=== PATIENT | male | born 1990 | race Caucasian/White ===

== ENCOUNTER 2020-08-18 14:31 | Emergency (ER) | payer SELFPAY ==
[2020-08-18] VITALS (11 sets, daily range): BP systolic 156–170; BP diastolic 70–100; PULSE 87–106; RESP 13–21; TEMP 36.8; O2SAT 99–100; BMI 50.1
--- NOTE | 2020-08-18 16:12 | DI.RAD.S_ITS ---
PROCEDURE: XR CHEST 1V INDICATIONS: sob TECHNIQUE: One view of the chest was acquired. COMPARISON: None. FINDINGS: Surgical changes and devices: None. Lungs and pleura: Lungs are clear. No pleural effusions or pneumothorax. Mediastinum: Mediastinal contours appear normal. Heart size is normal. Bones and chest wall: No suspicious bony lesions. Overlying soft tissues appear unremarkable. IMPRESSION: No acute disease. Dictated by: Ian Escobar M.D. on 08/18/2020 at 16:38 Approved by: Ian Escobar M.D. on 08/18/2020 at 16:39
[2020-08-18 19:21] LABS: Add Manual Diff / Slide Review NO; Basophils Absolute Auto 0 /uL (0-100); Basophils Percent Auto 0.5 % (0-2); Eosinophils Absolute Auto 100 /uL (0-450); Eosinophils Percent Auto 0.6 % (2-4); Hematocrit 42.3 % (41-53); Hemoglobin 14.3 g/dL (13.5-17.5); Lymphocytes Absolute Auto 2800 /uL (1100-4500); Lymphocytes Percent Auto 28.3 % (25-40); Mean Corpuscular HGB Conc 33.8 % (30-36); Mean Corpuscular Hemoglobin 28.4 PG (26-34); Mean Corpuscular Volume 83.9 fL (80-100); Monocytes Absolute Auto 600 /uL (0-900); Monocytes Percent Auto 5.9 % (3-14); Neutrophils Absolute Auto 6300 /uL (1500-7000); Neutrophils Percent Auto 64.7 % (50-75); Platelet Count 286 X10^3/uL (150-400); Red Blood Cell Count 5.04 X10^6/uL (4.5-5.9); Red Cell Distribution Width 13.7 % (11.6-14.8); White Blood Cell Count 9.8 X10^3/uL (4.5-11.0)
[2020-08-18 19:34] LABS: Blood Urea Nitrogen 17 mg/dL (9-20); Calcium 9.3 mg/dL (8.4-10.2); Carbon Dioxide 30 mmol/L (22-32); Chloride 103 mmol/L (98-107); Creatine Kinase 166 U/L (55-170); Estimated Glomerular Filt Rate > 60.0 mL/min (>60); Glucose 104 mg/dL (70-100); HEMOLYSIS < 15 (0-50); Lactate (Lactic Acid) 0.8 mmol/L (0.7-2.1); Magnesium 2.1 mg/dL (1.6-2.3); Sodium 139 mmol/L (137-145)
[2020-08-18 19:46] LABS: NT-proBNP (BNP-Adult 18+) 46 pg/mL (<125); Troponin I < 0.012 ng/mL (0.01-0.034)
[2020-08-18 19:48] LABS: CKMB % Relative Index 0.6 % (1.5-5.0); Creatine Kinase MB 0.97 ng/mL (<2.37)
[2020-08-18 19:57] LABS: D Dimer < 200 ng/mL (<230); Procalcitonin < 0.05 ng/mL (<0.5)
--- NOTE | 2020-08-18 20:24 | ED.SOB ---
HPI - SOB/Dyspnea General Chief Complaint: Shortness of Breath/Dyspnea Stated Complaint: breathing issues,thigh pain Time Seen by Provider: 08/18/20 16:11 Source: patient Mode of arrival: Ambulatory Limitations: no limitations History of Present Illness HPI Narrative: 29-year-old male nonsmoker with noncontributory medical history presents with a chief complaint of a concerning episode that occurred prior to his arrival in emergency department. He was in his normal state of health and attending a meeting at work earlier today when he was sitting at a table and felt a sudden uneasy feeling in his chest which caused him to feel dizzy and lightheaded. His symptoms lasted 30-45 minutes. He denies any provocation, palliation or radiation. He denies any history of the same. He denies any recent dietary medication change. He states he is quite active frequently and denies any exertional type symptoms at any other point. He denies recent travel, history of blood clot or injury. He denies exposure to persons known to be positive for COVID. His symptoms had largely resolved prior to arriving at the emergency department. During his episode he felt short of breath but that is no longer the case. He has had no cough. Also patient complains of some pain on his R thigh that had been presents a few weeks ago, but is no longer there. He denies redness, warmth, or swelling. MD Complaint: shortness of breath Onset (ago): hour(s) Severity: moderate Consistency/Duration: now resolved Relieving factors: nothing Exacerbating factors: nothing Treatment prior to arrival: none Related Data Allergies Allergy/AdvReac Type Severity Reaction Status Date / Time No Known Drug Allergies Allergy Verified 08/18/20 15:35 Review of Systems Constitutional Constitutional: Denies chills, Denies fatigue, Denies fever(s), Denies frequent falls, Denies lethargy and Denies weakness Eyes Eyes: Denies change in vision, Denies eye discharge, Denies irritation and Denies loss of vision ENT Ears, Nose, Mouth, and Throat: Denies change in voice, Denies dizziness, Denies neck pain, Denies sore throat and Denies throat swelling Cardiovascular Cardiovascular: Reports chest pain, Denies irregular heart rhythm, Denies lightheadedness, Denies palpitations, Reports dyspnea, Denies dyspnea on exertion and Denies orthopnea Respiratory Respiratory: Denies cough, Reports dyspnea, Denies dyspnea on exertion and Denies wheezing Gastrointestinal Gastrointestinal: Denies abdominal pain, Denies change in bowel habits, Denies diarrhea, Denies nausea and Denies vomiting Musculoskeletal Musculoskeletal: Denies neck pain and Denies numbness Integumentary/Breasts Skin/Breast: Denies pruritus, Denies erythema, Denies rash and Denies wounds Neurologic Neurologic: Denies behavioral changes, Denies confusion, Denies dizziness, Denies frequent falls, Denies loss of vision, Denies numbness and Denies weakness Psychiatric Psychiatric: Denies anxiety, Denies behavioral changes, Denies confusion, Denies depression, Denies homicidal ideation and Denies suicidal ideation Endocrine Endocrine: Denies fatigue, Denies flushing and Denies palpitations Hematologic/Lymphatic Hematologic/Lymphatic: Denies easy bruising Allergic/Immunologic Allergic/Immunologic: Denies urticaria, Denies throat swelling and Denies wheezing Patient History Social History Smoking Status: Never smoker Smoking Status: Never smoker alcohol intake frequency: holidays/special occasions only Substance Use Type: does not use Exam Narrative Exam Narrative: GENERAL: [29] year old patient appears stated age. Well-nourished, well-developed patient, in mild distress. BMI 50 HEAD: Atraumatic. Normocephalic. EYES: Pupils equal round and reactive. Extraocular motions intact. No scleral icterus. No injection or drainage. ENT: Nose without bleeding, purulent drainage. Throat without erythema, tonsillar hypertrophy or exudate. Airway patent. NECK: Trachea midline. Non tender CARDIOVASCULAR: Regular rate and rhythm without murmurs, gallops, or rubs. RESPIRATORY: Clear to auscultation. Breath sounds equal bilaterally. No wheezes, rales, or rhonchi. GASTROINTESTINAL: Abdomen soft, non-tender, nondistended. EXTREMITIES: No edema or joint tenderness. BACK: Nontender without deformity or crepitance. No flank tenderness. NEURO: AOx3. SKIN: No rash or erythema of visible areas Initial Vital Signs Initial Vital Signs: Vital Signs Temperature 98.2 F 08/18/20 15:35 Pulse Rate 105 H 08/18/20 15:35 Respiratory Rate 18 08/18/20 15:35 Blood Pressure 156/100 H 08/18/20 15:35 Pulse Oximetry 100 08/18/20 15:35 Course Orders Ordered: ED Orders 08/18/20 15:41 EKG-12 Lead Stat 08/18/20 16:11 Consult to Respiratory Therapy Evaluate & Treat 08/18/20 16:12 XR chest 1V Stat 08/18/20 19:09 Basic Metabolic Panel Stat Complete Blood Count AUTO DIFF Stat D Dimer Stat Lactate (Lactic Acid) Stat Magnesium Stat NT-proBNP (BNP-Adult 18+) Stat Procalcitonin Stat Troponin & CK Cardiac Panel Stat Vital Signs Vital signs: Vital Signs - 8 hr 08/18/20 20:30 08/18/20 20:31 Pulse Rate 87 87 Respiratory Rate 17 19 Blood Pressure 168/74 H Pulse Oximetry 100 100 MDM - SOB/Dyspnea Lab Data Result diagrams: 08/18/20 19:09 08/18/20 19:09 Labs: Lab Results 08/18/20 08/18/20 08/18/20 Range/Units 19:09 19:09 19:09 WBC 9.8 (4.5-11.0) X10^3/uL RBC 5.04 (4.5-5.9) X10^6/uL Hgb 14.3 (13.5-17.5) g/dL Hct 42.3 (41-53) % MCV 83.9 (80-100) fL MCH 28.4 (26-34) PG MCHC 33.8 (30-36) % RDW 13.7 (11.6-14.8) % Plt Count 286 (150-400) X10^3/uL Neut % (Auto) 64.7 (50-75) % Lymph % (Auto) 28.3 (25-40) % [place] % (Auto) 5.9 (3-14) % Eos % (Auto) 0.6 L (2-4) % Baso % (Auto) 0.5 (0-2) % Neut # (Auto) 6300 (6925-4685) /uL Lymph # (Auto) 2800 (8280-6306) /uL [place] # (Auto) 600 (0-900) /uL Eos # (Auto) 100 (0-450) /uL Baso # (Auto) 0 (0-100) /uL D-Dimer < 200 (<230) ng/mL Sodium 139 (137-145) mmol/L Potassium 4.0 (3.4-5.1) mmol/L Chloride 103 (98-107) mmol/L Carbon Dioxide 30 (22-32) mmol/L BUN 17 (9-20) mg/dL Creatinine 0.68 (0.66-1.25) mg/dL Estimated GFR > 60.0 (>60) mL/min BUN/Creatinine Ratio 25.0 H (6-22) Glucose 104 H (70-100) mg/dL Lactate (0.7-2.1) mmol/L Calcium 9.3 (8.4-10.2) mg/dL Magnesium 2.1 (1.6-2.3) mg/dL Total Creatine Kinase 166 (55-170) U/L CK-MB (CK-2) 0.97 (<2.37) ng/mL CK-MB (CK-2) Rel Index 0.6 L (1.5-5.0) % Troponin I < 0.012 (0.01-0.034) ng/mL NT-Pro-B Natriuret Pep 46 (<125) pg/mL Procalcitonin (<0.5) ng/mL 08/18/20 08/18/20 Range/Units 19:09 19:09 WBC (4.5-11.0) X10^3/uL RBC (4.5-5.9) X10^6/uL Hgb (13.5-17.5) g/dL Hct (41-53) % MCV (80-100) fL MCH (26-34) PG MCHC (30-36) % RDW (11.6-14.8) % Plt Count (150-400) X10^3/uL Neut % (Auto) (50-75) % Lymph % (Auto) (25-40) % [place] % (Auto) (3-14) % Eos % (Auto) (2-4) % Baso % (Auto) (0-2) % Neut # (Auto) (6710-1548) /uL Lymph # (Auto) (8935-3158) /uL [place] # (Auto) (0-900) /uL Eos # (Auto) (0-450) /uL Baso # (Auto) (0-100) /uL D-Dimer (<230) ng/mL Sodium (137-145) mmol/L Potassium (3.4-5.1) mmol/L Chloride (98-107) mmol/L Carbon Dioxide (22-32) mmol/L BUN (9-20) mg/dL Creatinine (0.66-1.25) mg/dL Estimated GFR (>60) mL/min BUN/Creatinine Ratio (6-22) Glucose (70-100) mg/dL Lactate 0.8 (0.7-2.1) mmol/L Calcium (8.4-10.2) mg/dL Magnesium (1.6-2.3) mg/dL Total Creatine Kinase (55-170) U/L CK-MB (CK-2) (<2.37) ng/mL CK-MB (CK-2) Rel Index (1.5-5.0) % Troponin I (0.01-0.034) ng/mL NT-Pro-B Natriuret Pep (<125) pg/mL Procalcitonin < 0.05 (<0.5) ng/mL Imaging Data Chest x-ray: Radiologist's Impression: [address] [id number] ReportSigned Patient: Andrea Brown AMR#: [id number]: 1990Acct:[id number]/Sex: 29 / MDate of Service: 08/18/20Loc: EDAccession Number: [id number] Procedure: XR chest 1V Ordering Provider: Genesis Cortes D.O. PROCEDURE: XR CHEST 1V INDICATIONS: sob TECHNIQUE: One view of the chest was acquired. COMPARISON: None. FINDINGS: Surgical changes and devices: None. Lungs and pleura: Lungs are clear. No pleural effusions or pneumothorax. Mediastinum: Mediastinal contours appear normal. Heart size is normal. Bones and chest wall: No suspicious bony lesions. Overlying soft tissues appear unremarkable. IMPRESSION: No acute disease. Dictated by: Ian Escobar M.D. on 08/18/2020 at 16:38 Approved by: Ian Escobar M.D. on 08/18/2020 at 16:39 ECG Data Attestation: I personally reviewed and interpreted this ECG as follows: Interpretation: EKG is normal sinus rhythm rate [ 84] and free of any signs of ischemia or ectopy. No ST segmental elevation or depression. No T wave inversions MDM Narrative Medical decision making narrative: Multiple etiologies for patient's symptoms considered including: Multiple causes of chest pain considered including NV, PE, pneumothorax, pneumonia, aortic dissection, and pleurisy. Patient reports no radiation, no diaphoresis, no provocation with exertion, and no vomiting. Also consider PE but thought unlikely given negative D-dimer. Consideration of a brief, resolved tachyarrhythmia Patient's symptoms improved over duration of stay with above-stated therapies. Findings and discharge diagnosis discussed with patient/family followed by verbalization of understanding Return precautions discussed with patient/family whom verbalize understanding. Discharge Plan Departure Patient Disposition: Home Clinical Impression: Near syncope Instructions: DI for Syncope in Adults (Fainting) Activity Restrictions/Additional Instructions: *You have been diagnosed with [near syncopal episode, your exam, labs and EKG are very reassuring today, but you will need to follow up with a primary doc to continue the workup. ] *What to do: *Take medications as directed *Follow up with your primary care provider in 2-3 days, call for an appointment. Let them know you were seen in the Emergency Department and that we ask that you be seen in follow up *Return to ER if you should have any new, worsening or concerning symptoms Referrals: [facility] [Outside]
== END 2020-08-18 21:12 | disposition home or self-care (01) ==
PROVIDERS: Emergency Medicine; Emergency Provider Emergency Medicine
DX: R55 Syncope and collapse (principal); R06.02 Shortness of breath
CPT/HCPCS: 36415; 71045; 80048; 82550; 82553; 83605; 83735; 83880; 84145; 84484; 85025; 85379; 93005; 99283

== ENCOUNTER 2021-04-02 11:52 | Emergency (ER) | payer SELFPAY ==
--- NOTE | 2021-04-02 12:07 | DI.RAD.S_ITS ---
PROCEDURE: XR CHEST 1V INDICATIONS: chest pain TECHNIQUE: One view of the chest was acquired. COMPARISON: [facility], CR, XR CHEST 1V, 08/18/2020, 16:26. FINDINGS: Surgical changes and devices: None. Lungs and pleura: Low lung volumes. Scattered subsegmental atelectasis and/or scarring. No focal consolidation. No pleural effusion or pneumothorax. Mediastinum: Mediastinal contours appear normal. Heart size is normal. Bones and chest wall: No suspicious bony lesions. Overlying soft tissues appear unremarkable. IMPRESSION: Low lung volumes and scattered atelectasis. Dictated by: Ian Escobar M.D. on 04/02/2021 at 12:37 Approved by: Ian Escobar M.D. on 04/02/2021 at 12:38
[2021-04-02 12:10] VITALS: BP 185/101; PULSE 103; RESP 20; TEMP 36.7; O2SAT 98
[2021-04-02 12:52] LABS: Add Manual Diff / Slide Review NO; Basophils Absolute Auto 0 /uL (0-100); Basophils Percent Auto 0.5 % (0-2); Eosinophils Absolute Auto 100 /uL (0-450); Eosinophils Percent Auto 0.9 % (2-4); Hematocrit 42.9 % (41-53); Hemoglobin 14.3 g/dL (13.5-17.5); Lymphocytes Absolute Auto 2000 /uL (1100-4500); Lymphocytes Percent Auto 25.6 % (25-40); Mean Corpuscular HGB Conc 33.3 % (30-36); Mean Corpuscular Hemoglobin 27.8 PG (26-34); Mean Corpuscular Volume 83.5 fL (80-100); Monocytes Absolute Auto 600 /uL (0-900); Monocytes Percent Auto 7.8 % (3-14); Neutrophils Absolute Auto 5200 /uL (1500-7000); Neutrophils Percent Auto 65.2 % (50-75); Platelet Count 291 X10^3/uL (150-400); Red Blood Cell Count 5.14 X10^6/uL (4.5-5.9); Red Cell Distribution Width 14.1 % (11.6-14.8); White Blood Cell Count 7.9 X10^3/uL (4.5-11.0)
[2021-04-02 13:08] LABS: Alanine Aminotransferase 54 IU/L (<50); Albumin 4.4 g/dL (3.5-5.0); Albumin Globulin Ratio 1.2 (1.0-2.8); Alkaline Phosphatase 117 U/L (38-126); Aspartate Aminotransferase 31 IU/L (17-59); BUN Creatinine Ratio 23.9 (6-22); Bilirubin Total 0.5 mg/dL (0.2-1.3); Blood Urea Nitrogen 16 mg/dL (9-20); Carbon Dioxide 28 mmol/L (22-32); Chloride 103 mmol/L (98-107); Creatine Kinase 113 U/L (55-170); Estimated Glomerular Filt Rate > 60.0 mL/min (>60); Globulin 3.6 g/dL (1.7-4.1); Glucose 100 mg/dL (70-100); HEMOLYSIS < 15 (0-50); Lipase 38 U/L (23-300); Sodium 138 mmol/L (137-145)
[2021-04-02 13:18] LABS: Troponin I < 0.012 ng/mL (0.01-0.034)
[2021-04-02 13:23] LABS: CKMB % Relative Index 0.7 % (1.5-5.0); Creatine Kinase MB 0.78 ng/mL (<2.37)
[2021-04-02 14:11] VITALS: PULSE 90; O2SAT 100
[2021-04-02 14:12] VITALS: BP 172/96; PULSE 95; O2SAT 99
[2021-04-02 14:30] VITALS: BP 171/88; PULSE 92; RESP 19; O2SAT 100
--- NOTE | 2021-04-02 14:38 | ED_ITS ---
HPI - General Adult General Chief complaint: Hypertension Stated complaint: headache, blood pressure high, clamy, sweating Time Seen by Provider: 04/02/21 14:26 Source: patient Mode of arrival: Ambulatory Limitations: no limitations History of Present Illness HPI narrative: 22-year-old male nonsmoker with no medical history presents with a chief complaint of a few days of vague headache, fatigue, and dizziness. He went to the walk-in clinic for evaluation He states that he checked his blood pressure found to be in the 180s at which point he was sent here. He denies any chest pain nor fever chills. He denies abdominal pain. He has no numbness, tingling or weakness. On arrival his blood pressure was in the 180s and has since improved a bit to the 170s and his symptoms have resolved he denies any history of high blood pressure and does not take any medications Related Data Previous Rx's Medication Instructions Recorded amlodipine 5 mg tablet 5 mg PO DAILY #30 tab 04/02/21 Allergies Allergy/AdvReac Type Severity Reaction Status Date / Time No Known Drug Allergies Allergy Verified 04/02/21 14:40 Review of Systems Review of Systems Narrative: GENERAL: See HPI HEENT: Denies sinus pain, ear pain, sore throat, difficulty swallowing, dizziness. RESPIRATORY: Denies dyspnea, cough, wheezing, hemoptysis, sputum. CARDIOVASCULAR: See HPI GASTROINTESTINAL: Denies nausea, vomiting, abdominal pain, diarrhea, constipation, melena. : Denies dysuria, frequency, incontinence, hematuria, urinary retention. MUSCULOSKELETAL: denies weakness, joint pain, or bony pain SKIN: Denies rash, skin lesions, or other NEUROLOGIC: See HPI. PSYCHIATRIC: No concerning psychosocial issues. 12 point review of systems is negative except for those stated above Patient History Social History Smoking Status: Never smoker Smoking Status: Never smoker alcohol intake frequency: holidays/special occasions only Substance Use Type: does not use Exam Narrative Exam Narrative: GENERAL: [30] year old patient appears stated age. Well- developed patient, in mild distress. HEAD: Atraumatic. Normocephalic. EYES: Pupils equal round and reactive. Extraocular motions intact. No scleral icterus. No injection or drainage. ENT: Nose without bleeding, purulent drainage. Throat without erythema, tonsillar hypertrophy or exudate. Airway patent. NECK: Trachea midline. Non tender CARDIOVASCULAR: Regular rate and rhythm without murmurs, gallops, or rubs. RESPIRATORY: Clear to auscultation. Breath sounds equal bilaterally. No wheezes, rales, or rhonchi. GASTROINTESTINAL: Abdomen soft, non-tender, nondistended. EXTREMITIES: No edema or joint tenderness. BACK: Nontender without deformity or crepitance. No flank tenderness. NEURO: AOx3. SKIN: No rash or erythema of visible areas Initial Vital Signs Initial Vital Signs: Vital Signs Temperature 98.0 F 04/02/21 12:10 Pulse Rate 103 H 04/02/21 12:10 Respiratory Rate 20 04/02/21 12:10 Blood Pressure 185/101 H 04/02/21 12:10 Pulse Oximetry 98 04/02/21 12:10 Course Orders Ordered: ED Orders 04/02/21 12:07 XR chest 1V Stat EKG-12 Lead Stat 04/02/21 12:40 Complete Blood Count AUTO DIFF Stat Comprehensive Metabolic Panel Stat Lipase Stat Troponin & CK Cardiac Panel Stat Reevaluation(s) Reevaluation #1: Significant improvement in patient's symptoms correlate with improvement in blood pressure. Vital Signs Vital signs: Vital Signs - 8 hr 04/02/21 12:10 04/02/21 14:11 04/02/21 14:12 Temperature 98.0 F Pulse Rate 103 H 90 95 H Respiratory Rate 20 Blood Pressure 185/101 H 172/96 H Pulse Oximetry 98 100 99 04/02/21 14:30 04/02/21 14:44 Temperature Pulse Rate 92 H 94 H Respiratory Rate 19 14 Blood Pressure 171/88 H 172/86 H Pulse Oximetry 100 100 Medical Decision Making Lab Data Result diagrams: 04/02/21 12:40 04/02/21 12:40 Labs: Lab Results 04/02/21 04/02/21 Range/Units 12:40 12:40 WBC 7.9 (4.5-11.0) X10^3/uL RBC 5.14 (4.5-5.9) X10^6/uL Hgb 14.3 (13.5-17.5) g/dL Hct 42.9 (41-53) % MCV 83.5 (80-100) fL MCH 27.8 (26-34) PG MCHC 33.3 (30-36) % RDW 14.1 (11.6-14.8) % Plt Count 291 (150-400) X10^3/uL Neut % (Auto) 65.2 (50-75) % Lymph % (Auto) 25.6 (25-40) % [place] % (Auto) 7.8 (3-14) % Eos % (Auto) 0.9 L (2-4) % Baso % (Auto) 0.5 (0-2) % Neut # (Auto) 5200 (5568-0131) /uL Lymph # (Auto) 2000 (1743-9000) /uL [place] # (Auto) 600 (0-900) /uL Eos # (Auto) 100 (0-450) /uL Baso # (Auto) 0 (0-100) /uL Sodium 138 (137-145) mmol/L Potassium 4.0 (3.4-5.1) mmol/L Chloride 103 (98-107) mmol/L Carbon Dioxide 28 (22-32) mmol/L BUN 16 (9-20) mg/dL Creatinine 0.67 (0.66-1.25) mg/dL Estimated GFR > 60.0 (>60) mL/min BUN/Creatinine Ratio 23.9 H (6-22) Glucose 100 (70-100) mg/dL Calcium 10.0 (8.4-10.2) mg/dL Total Bilirubin 0.5 (0.2-1.3) mg/dL AST 31 (17-59) IU/L ALT 54 H (<50) IU/L Alkaline Phosphatase 117 (38-126) U/L Total Creatine Kinase 113 (55-170) U/L CK-MB (CK-2) 0.78 (<2.37) ng/mL CK-MB (CK-2) Rel Index 0.7 L (1.5-5.0) % Troponin I < 0.012 (0.01-0.034) ng/mL Total Protein 8.0 (6.3-8.2) g/dL Albumin 4.4 (3.5-5.0) g/dL Globulin 3.6 (1.7-4.1) g/dL Albumin/Globulin Ratio 1.2 (1.0-2.8) Lipase 38 (23-300) U/L MDM Narrative Medical decision making narrative: Patient with what appears to be symptomatic blood pressure on arrival and improvement with improved blood pressure. His history, physical exam and labs are very reassuring. We talked at length about the importance of following closely with his primary care provider to tract the effectiveness of our therapies. He understands this as is evidenced by his ability to verbalize the instructions. Return precautions given and questions answered to her his apparent satisfaction Discharge Plan Departure Patient Disposition: Home Clinical Impression: Hypertension Instructions: DI for High Blood Pressure Activity Restrictions/Additional Instructions: *You have been diagnosed with [ hypertension] *What to do: *Please continue to take your regular medications as directed. [x ] New medication prescriptions sent to your pharmacy: [ [facility]] [ ] New medication written as a paper prescription [ ] No new medications given *Please follow up with your primary care provider in 2-3 days, call for an appointment. Let them know you were seen in the Emergency Department and that we ask that you be seen in follow up. We will electronically transmit a record of today's note if your PCP is in our system *If you do not have a primary care provider please contact the [facility] Resource line at [phone]. They will ask some questions about your medical history and help get you set up with a doctor in the community. *Return to Emergency Department if you should have any new, worsening or concerning symptoms, such as [fever greater than 101 F, shaking chills, wors ening pain, persistent vomiting or other bothersome symptoms] Prescriptions: New amlodipine 5 mg tablet 5 mg PO DAILY Qty: 30 RF: 0
[2021-04-02 14:44] VITALS: BP 172/86; PULSE 94; RESP 14; O2SAT 100
== END 2021-04-02 15:33 | disposition home or self-care (01) ==
PROVIDERS: Emergency Provider Emergency Medicine
DX: I10 Essential (primary) hypertension (principal); R42 Dizziness and giddiness; R07.9 Chest pain, unspecified
CPT/HCPCS: 36415; 71045; 80053; 82550; 82553; 83690; 84484; 85025; 93005; 99284

== ENCOUNTER 2022-05-28 09:57 | Emergency (ER) | payer OTHER, SELFPAY ==
[2022-05-28 10:08] VITALS: BP 142/86; PULSE 90; RESP 15; TEMP 36.2; O2SAT 98; BMI 54.2
--- NOTE | 2022-05-28 10:14 | DI.RAD.S_ITS ---
PROCEDURE: XR KNEE RT 3V INDICATIONS: knee pain and swelling TECHNIQUE: 3 views of the knee were acquired. COMPARISON: None. FINDINGS: Bones: No fractures or dislocations. No suspicious bony lesions. Soft tissues: No joint effusion. No suspicious soft tissue calcifications. IMPRESSION: Normal right knee Dictated by: Carlitos Krishnan M.D. on 05/28/2022 at 11:07 Approved by: Carlitos Krishnan M.D. on 05/28/2022 at 11:08
--- NOTE | 2022-05-28 12:22 | DI.US.S_ITS ---
PROCEDURE: US PERIPH VENOUS LOW EXTREM RT INDICATIONS: Pain and swelling TECHNIQUE: Real-time imaging, as well as color and pulse Doppler interrogation, were performed of the lower extremity deep veins from the inguinal ligament to the popliteal fossa. COMPARISON: None. FINDINGS: The common femoral, femoral and popliteal veins are normally compressible, and free of intraluminal thrombus. Color and pulse Doppler demonstrate normal phasic intraluminal flow. There is normal augmentation response to distal compression maneuver. IMPRESSION: No sonographic evidence of DVT. Dictated by: Santy Das M.D. on 05/28/2022 at 13:41 Approved by: Santy Das M.D. on 05/28/2022 at 13:44
--- NOTE | 2022-05-28 12:24 | ED.LOWEXIN ---
HPI - Extremity Injury (Lower) General Chief Complaint: Extremity Injury, Lower Stated Complaint: rt knee injury getting worse, swelling bruising Time Seen by Provider: 05/28/22 12:14 Source: patient Mode of arrival: Ambulatory History of Present Illness HPI Narrative: Patient here for ongoing right knee pain for the past 1 month. He was at home in the kitchen and hardwood floor, he pivoted and felt a pop in the right lateral knee. Since then he is had off and on popping sensation in the same area. Has had bruising to the right lateral knee as well. Painful with walking and bearing weight. No previous injury to the knee. Patient does admit he is overweight and does not help/contribute to the knee pain. No numbness or tingling to the feet. Patient wearing shorts. Related Data Previous Rx's Medication Instructions Recorded amlodipine 5 mg tablet 5 mg PO DAILY #30 tabs 04/02/21 Allergies Allergy/AdvReac Type Severity Reaction Status Date / Time amoxicillin [From Augmentin] Allergy Verified 05/28/22 10:10 clavulanic acid Allergy Verified 05/28/22 10:10 [From Augmentin] sulfamethoxazole Allergy Verified 05/28/22 10:10 [From Septra] trimethoprim [From Septra] Allergy Verified 05/28/22 10:10 Review of Systems Review of Systems Narrative: GENERAL: Denies chills, fatigue, malaise, fever, sweats. HEENT: Denies sinus pain, ear pain, sore throat RESPIRATORY: Denies dyspnea, cough CARDIOVASCULAR: Denies chest pain, palpitations GASTROINTESTINAL: Denies nausea, vomiting, abdominal pain : Denies dysuria, frequency, hematuria MUSCULOSKELETAL: Positive for muscle or bony pain SKIN: Denies rash, skin lesions NEUROLOGIC: Denies weakness, numbness ROS Unobtainable: All systems reviewed & are unremarkable except as noted in HPI and below Patient History Social History Smoking Status: Never smoker Smoking Status: Never smoker alcohol intake frequency: holidays/special occasions only Substance Use Type: does not use Exam Narrative Exam Narrative: GENERAL: in no distress, not toxic not dyspneic HEAD: Normocephalic. EXTREMITIES: No gross deformities. Examination right lower extremity. Able stand and bear weight but does have antalgic gait no foot drop. There is tenderness to the lateral knee with ecchymosis. There is pain but no laxity of the knee with medial and lateral and rotational stress of the right leg. No pain or laxity of the knee with anterior posterior stress of the right leg. No palpable cords on calf. Calf nontender. NEURO: AOx4. SKIN: Warm and dry PSYCH: Not anxious, is cooperative Initial Vital Signs Initial Vital Signs: Vital Signs Temperature 97.1 F L 05/28/22 10:08 Pulse Rate 90 05/28/22 10:08 Respiratory Rate 15 05/28/22 10:08 Blood Pressure 142/86 H 05/28/22 10:08 Pulse Oximetry 98 05/28/22 10:08 Oxygen Delivery Method 05/28/22 10:08 Course Course Course Narrative: No new issues during course of stay Orders Ordered: ED Orders 05/28/22 10:14 XR knee RT 3V Stat 05/28/22 12:22 periph venous low extrem rt Stat Reevaluation(s) Reevaluation #1: Results reviewed with patient. Agrees with treatment plan on follow up with Orthopedics as well as possible MRI. Pain control at time of discharge. Time: 14:54 Vital Signs Vital signs: Vital Signs - 8 hr 05/28/22 10:08 Temperature 97.1 F L Pulse Rate 90 Respiratory Rate 15 Blood Pressure 142/86 H Pulse Oximetry 98 Oxygen Delivery Method Room Air MDM - Extremity Injury (Lower) Differential Diagnosis Differential diagnosis: Likely acute internal derangement of knee and other (DVT/knee strain/sprain) Imaging Data Extremity x-ray #1: Radiologist's Impression: [address] [id number] ReportSigned Patient: Andrea Brown [facility]#: [id number]: 1990Acct:[id number]/Sex: te of Service: 05/28/22Loc: EDAccession Number: [id number] Procedure: XR knee RT 3V Ordering Provider: Ozzie Cleaning MD PROCEDURE: XR KNEE RT 3V INDICATIONS: knee pain and swelling TECHNIQUE: 3 views of the knee were acquired. COMPARISON: None. FINDINGS: Bones: No fractures or dislocations. No suspicious bony lesions. Soft tissues: No joint effusion. No suspicious soft tissue calcifications. IMPRESSION: Normal right knee Dictated by: Carlitos Krishnan M.D. on 05/28/2022 at 11:07 Approved by: Carlitos Krishnan M.D. on 05/28/2022 at 11:08 US - DVT: Radiologist's Impression: [address] [address] Ultrasound Report Signed Patient: Andrea Brown MR#: [id number] : 1990 Acct:[id number] Age/Sex: 31 / M Date of Service: 05/28/22 Loc: ED Accession Number: [id number] ?? Procedure: US periph venous low extrem rt Ordering Provider: Ozzie Cleaning MD PROCEDURE:? US PERIPH VENOUS LOW EXTREM RT ? INDICATIONS:? Pain and swelling ? TECHNIQUE:? Real-time imaging, as well as color and pulse Doppler interrogation, were performed of the lower extremity deep veins from the inguinal ligament to the popliteal fossa.? ? COMPARISON:? None. ? FINDINGS:? The common femoral, femoral and popliteal veins are normally compressible, and free of intraluminal thrombus.? Color and pulse Doppler demonstrate normal phasic intraluminal flow.? There is normal augmentation response to distal compression maneuver. ? ? IMPRESSION:? No sonographic evidence of DVT. ? ? Dictated by: Santy Das M.D. on 05/28/2022 at 13:41 ? ? Approved by: Santy Das M.D. on 05/28/2022 at 13:44 ? MDM Narrative Medical decision making narrative: Appropriate for discharge home. Exam and imaging are reassuring. Patient does need outpatient MRI and follow up with Orthopedics. Patient agrees with treatment plan. He does have crutches at home already. He states he will get an euuh-aej-jxnydro knee sleeve/support. Return precautions reviewed with patient. He desires discharge home Discharge Plan Departure Patient Disposition: Home Clinical Impression: Knee Injury Instructions: DI for Knee Pain Activity Restrictions/Additional Instructions: Please use your home crutches to reduce weight-bearing and strain on your knee to allow better healing. May use [id number]-[id number] Tylenol or ibuprofen for pain. Use Kyler wrap to the knee for support but preferred is a knee sleeve that you can get [id number]-[id number] at a sports store. Call provided orthopedic office on Tuesday for office re-evaluation of your knee, you may need to schedule outpatient MRI of your knee with the office as well. Return if worse if any questions or concerns Prescriptions: No Action amlodipine 5 mg tablet 5 mg PO DAILY Qty: 30 0RF Referrals: Addis Paz MD [Physician] - Miscellaneous,MD Lorene [Primary Care Provider] - Visit Report Forms: Patient Portal/API
[2022-05-28 15:10] VITALS: PULSE 96; RESP 18; O2SAT 98
--- NOTE | 2022-05-28 15:16 | PC.NURSE ---
Pt assessment done by provider Dr. Cleaning.
[2022-05-28 15:17] VITALS: BP 177/110
== END 2022-05-28 15:20 | disposition home or self-care (01) ==
PROVIDERS: Emergency Provider Emergency Medicine
DX: S89.91XA Unspecified injury of right lower leg, initial encounter (principal); X50.1XXA Overexertion from prolonged static or awkward postures, initial encounter
CPT/HCPCS: 73562; 93971; 99283

== ENCOUNTER 2025-07-03 10:54 | Day surgery (SDC) | payer OTHER, SELFPAY ==
[2025-06-14 12:17] VITALS: BMI 64.6
[2025-07-03 11:33] VITALS: BP 176/104; PULSE 107; RESP 18; TEMP 37.5; O2SAT 97
[2025-07-03] MEDS: LACTATED RINGERS 1,000 ML 42 ML IV (12:08)
--- NOTE | 2025-07-03 12:28 | P.OP.PRE_ITS ---
Pre-operative Note
--- NOTE | 2025-07-03 12:28 | PM.PREOP ---
Pre-operative Note COVID-19 COVID-19 status: Not tested Interval Note History & Physical reviewed/Exam performed by Physician: Yes Changes to H&P: No
--- NOTE | 2025-07-03 13:39 | SUR.OPER ---
Supine on padded OR bed, head on pillow, arms secured on padded arm boards at <90 degrees abduction, legs uncrossed, safety belt ACROSS ABDOMEN, tape over blanket over lower right leg. all positioning approved and directed by surgeon prior to start of procedure.
[2025-07-03] MEDS: SODIUM CHLORIDE IRRIG SOLUTION 3,000 ML, EPINEPHrine 1 MG IRR ×2 (13:53→14:01)
[2025-07-03 14:40] VITALS: BP 138/105; PULSE 107; RESP 20; TEMP 36.5; O2SAT 98
--- NOTE | 2025-07-03 14:40 | P.OP_ITS ---
Operative Date/Time/Diagnoses
--- NOTE | 2025-07-03 14:40 | PM.OP.1 ---
Operative Date/Time/Diagnoses Date of procedure: 07/03/25 Time of procedure: 13:45 Pre-op diagnosis: right knee medial meniscus tear Post-op diagnosis: same Procedure & Clinicians Procedure: right knee arthroscopy with medial meniscus debridement Same procedure(s) as scheduled: Yes Surgeon: Bita Calderón Assisted?: Yes Machine Set Up Operator Paper Goods: Flavia Muniz Anesthesia Type: General Operative Notes Findings: see below Closure Type: primary Specimen(s): none sent Applied: none Estimated Blood Loss (mL): 20 Tourniquet time (min): 46 Procedure in detail: Preoperative diagnosis: Right Medial meniscus tear Procedure performed: 1) Right knee arthroscopic partial menisectomy Postoperative diagnosis: Right knee medial meniscus tear Primary Surgeon: Bita Calderón, DO Machine Set Up Operator Paper Goods:? Flavia Muniz Anesthesia: General ETA EBL: 20 ml Tourniquet: ?46 minutes @ 250 mmHg Implants: None Indication For Surgery: ?See Pre-op H&P Examination Under Anesthesia: ROM equal to the contralateral side. Grade I Pravin Stable to varus and valgus stressing at 0 & 30 degrees. No mechanical sensations Diagnostic Arthroscopy: Loose bodies: None Synovium: okay Patella cartilage: intact? Trochlear cartilage: intact? Medial femoral condyle cartilage: intact Medial tibial plateau cartilage: intact? Medial meniscus:? posterior horn tear - complexl ACL: intact PCL: intact Lateral femoral condyle cartilage: intact Lateral tibial plateau cartilage: intact Lateral meniscus: intact Procedure in Detail: The patient was met in the pre-operative hold area. Consent was verified and operative extremity was signed. The patient was brought back to the operating room. The patient was placed supine position on the operating table. A general anesthetic was administered. A well-padded tourniquet was placed on the thigh. An exam under anesthesia was performed with the above findings.? The lower extremity was then prepped and draped in the usual sterile fashion. A timeout was performed per protocol. All members of the operating team were in agreement, and we proceeded. The Esmarch was used to exsanguinate the limb and the tourniquet was inflated. An 11 blade scalpel was used to make an anterolateral arthroscopic portal. The arthroscope was introduced into the knee and the anteromedial portal was created under direct visualization using needle localization. A diagnostic arthroscopy was performed with the above-stated findings.? The medial meniscus tear was debrided. The wounds were irrigated.? The incisions were closed with Nylon sutures. ?A sterile dressing was applied. The patient was awakened and transferred to the recovery room in stable condition. ?30 cc of 0.25% Marcaine was infiltrated at the end of the case. An neurology physician assistant was utilized for positioning, and closing. Postoperative Plan: Same day discharge Weightbearing as tolerated. Remove dressing in [address]aids over incision sites. Physical therapy to start after surgery. Follow up at 2 weeks for suture removal. Complications: none Post-operative Condition: stable
[2025-07-03 14:45] VITALS: BP 146/105; PULSE 106; RESP 16; O2SAT 96
[2025-07-03 14:50] VITALS: BP 147/100; PULSE 104; RESP 12; O2SAT 97
[2025-07-03] MEDS: ACETAMINOPHEN 325 MG TABLET 975 MG PO (14:58)
[2025-07-03 15:07] VITALS: BP 156/100; PULSE 101; RESP 24; TEMP 36.6; O2SAT 97
== END 2025-07-03 15:30 | disposition home or self-care (01) ==
PROVIDERS: PCP Physician Assistant; Referring Provider Physician Assistant; Visit Provider Orthopaedic Surgery
PROC: (CPT 29870; principal; 2025-07-03 12:45)
DX: S83.231A Complex tear of medial meniscus, current injury, right knee, initial encounter (principal); S83.241A Other tear of medial meniscus, current injury, right knee, initial encounter
CPT/HCPCS: 29881; J0165; J0330; J0687; J1100; J1885; J2405; J2704; J3010; J7050; J7120